=== PATIENT | female | born 2000 | race Caucasian/White ===

== ENCOUNTER 2018-08-14 09:46 | Day surgery (SDC) | payer OTHER ==
[2018-08-14] VITALS (14 sets, daily range): BP systolic 94–132; BP diastolic 46–78; PULSE 82–110; RESP 10–20; Ht 172.7 cm; Wt 60.9 kg
[~2018-08-14] VITALS: Ht 172.7 cm; Wt 60.9 kg
[2018-08-14] MEDS ORDERED: SPIR50TA PO (10:05)
[2018-08-14] MEDS ORDERED: CEFAZOLIN 1 GM INJ ONE ×2 (11:43→15:02)
[2018-08-14] MEDS ORDERED: ROPIVACAINE 0.5 % 30 ML VIAL ONE ×2 (11:43→13:58)
[2018-08-14] MEDS ORDERED: HYDROmorphONE 2 MG/ML SYG ONE (11:43)
[2018-08-14] MEDS ORDERED: PROPOFOL 20 ML ONE (11:43)
[2018-08-14] MEDS ORDERED: MIDAZOLAM 1 MG/ML 2 ML INJ ONE (11:43)
[2018-08-14] MEDS ORDERED: ROCURONIUM 50 MG INJ ONE (11:45)
--- NOTE | 2018-08-14 12:31 | PREAC ---
Date/Time of Note Date/Time of Note DATE: 08/14/18 TIME: 12:30 Anesthesia Eval and Record Evaluation Time Pre-Procedure Interview DATE: 08/14/18 TIME: 12:30 Age 18 Sex female NPO: 8 hrs Preoperative diagnosis Right Achilles Tendon Rupture Planned procedure Right Achilles Tendon Repair Past Medical History Past Medical History: None Surgery & Anesthesia Issues No known issue Meds Anticoagulation: No Beta Kg within 24 hr: No Reason Beta Kg not given: Pt. not on B-Kg Reported Medications Spironolactone* (Aldactone*) 50 Mg Tablet, 50 MG PO DAILY, #30 TAB 08/14/18 Meds reviewed: Yes Allergies Coded Allergies: No Known Allergy (Unverified , 08/14/18) Allergies Reviewed: Yes Labs/Studies Labs Reviewed: Reviewed by anesthesiologist test: Negative Studies: ECG (n/a), CXR (n/a) Pre-procedure Exam Last vitals Vital Signs Date Temp Pulse Resp B/P (MAP) Pulse Ox O2 O2 Flow FiO2 Time Delivery Rate 08/14/18 98.6 110 16 131/78 97 Room Air 10:21 (95) Airway: Adequate mouth opening, Adequate thyromental dist Mallampati: Mallampati II Teeth: Normal Lung: Normal Heart: Normal ASA Physical Status ASA physical status: 1 Emergency: None Planned Anesthetic General/MAC: ETT Nerve block: Sciatic (right) Planned Pain Management Single shot nerve block, Parenteral pain med Pre-operative Attestations Prior to commencing anesthesia and surgery, the patient was re-evaluated, there was verification of: *The patient's identity *The results of appropriate recent lab work and preoperative vital signs *The above evaluation not changing prior to induction *Anesthetic plan, risk benefits, alternative and complications discussed with patient/family; questions answered; patient/family understands, accepts and wishes to proceed. NAVIN HARTLEY MD Aug 14, 2018 12:31
[2018-08-14] MEDS ORDERED: HYDROmorphONE 1 MG/5 ML IV SYRINGE IV PRN ×3 (13:00)
[2018-08-14] MEDS ORDERED: EPHEDrine SULFATE 50 MG/5 ML SYG IV PRN (13:00)
[2018-08-14] MEDS ORDERED: ONDANSETRON 4 MG INJ IV PRN ×2 (13:00→16:00)
[2018-08-14] MEDS ORDERED: MEPERIDINE 25 MG INJ IV PRN (13:00)
[2018-08-14] MEDS ORDERED: METOCLOPRAMIDE 10 MG INJ IV PRN (13:00)
[2018-08-14] MEDS ORDERED: OXYCODONE/ACETAMINOPHEN (5/325) TAB PO PRN ×3 (13:00→16:00)
[2018-08-14] MEDS ORDERED: FENTAnyl 50 MCG/ML VIAL IV PRN ×3 (13:00)
[2018-08-14] MEDS ORDERED: DIPHENHYDRAMINE 50 MG INJ IV PRN (13:00)
[2018-08-14] MEDS ORDERED: DEXAMETHASONE 4 MG/ML 5 ML INJ ONE (13:58)
[2018-08-14] MEDS ORDERED: METOCLOPRAMIDE 10 MG INJ ONE (13:58)
[2018-08-14] MEDS ORDERED: KETOROLAC 30 MG INJ ONE (13:58)
[2018-08-14] MEDS ORDERED: ONDANSETRON 4 MG INJ ONE (13:58)
[2018-08-14] MEDS ORDERED: CA CHLORIDE (GM) 10% 10 ML INJ ONE (13:59)
[2018-08-14] MEDS ORDERED: THROMBIN 5000 UNIT VIAL ONE (13:59)
[2018-08-14] MEDS ORDERED: POLYMYXIN/BACITRACIN 1L IRRIG ONE (13:59)
[2018-08-14] MEDS ORDERED: FENTAnyl 50 MCG/ML VIAL ONE (15:24)
[2018-08-14] MEDS ORDERED: SUGAMMADEX SODIUM 200 MG/2 ML VIAL IV ONE (15:26)
[2018-08-14] MEDS ORDERED: SOD CHLORIDE 0.9% 1,000 ML IV SCH (15:52)
--- NOTE | 2018-08-14 15:52 | OPPN ---
Date/Time of Note Date/Time of Note DATE: 08/14/18 TIME: 15:51 Operative Report Preoperative Diagnosis Right Achilles tendon tear Postoperative Diagnosis same Operation/Procedure Performed Right achilles tendon repair Surgeon see signature line licensed physical therapy assistant DO Alejandra Anesthesia: general, MAC Estimated blood loss: minimal Transfusion Required none Specimen none Grafts/Implants none Complications none KIANNA SEVILLA MD Aug 14, 2018 15:52
--- NOTE | 2018-08-14 15:56 | PAC ---
Date/Time of Note Date/Time of Note DATE: 08/14/18 TIME: 15:55 Post-Anesthesia Notes Post-Anesthesia Note Last documented vital signs Vital Signs Date Temp Pulse Resp B/P (MAP) Pulse Ox O2 O2 Flow FiO2 Time Delivery Rate 08/14/18 99.0 110 16 131/78 97 Room Air 16:01 (95) Activity: WNL Respiratory function: WNL Cardiovascular function: WNL Mental status: Baseline Pain reasonably controlled: Yes Hydration appropriate: Yes Nausea/Vomiting absent: Yes NAVIN HARTLEY MD Aug 14, 2018 15:55
[2018-08-14] MEDS ORDERED: morphine 2 MG INJ IV PRN (16:00)
--- NOTE | 2018-08-14 17:25 | OPR ---
DATE OF OPERATION: 08/14/2018 PREOPERATIVE DIAGNOSIS: Acute tear of the right Achilles tendon. POSTOPERATIVE DIAGNOSES: 1. Acute tear of the right Achilles tendon. 2. Bilateral tight gastroc soleus complexes. PROCEDURES: 1. Repair of the tear of the right Achilles tendon. 2. Release of deep posterior fascia compartment. 3. Injection of PRP on the torn Achilles. 4. Short-leg cast. SURGEON: Kianna Singh MD ACOUSTICAL INSTALLER: Mario Roberts DO ANESTHESIA: General with popliteal block. TOURNIQUET TIME: 73 minutes. DESCRIPTION OF PROCEDURE: The patient was taken to the operating room and placed in supine position. Satisfactory popliteal block was given. Satisfactory general anesthesia was administered. A 2 gra ms were Ancef intravenously. The patient was rolled very carefully in the prone position, secured wi th extra padding pillows. All areas were carefully positioned including the arms. We examined both Achilles and 90 degrees of bend at the knee. She had very tight gastroc soleus on injured side with her foot in at least 25 to 30 degrees of plantar flexion, slight inversion. I felt we would have to replicate this on the other side. Both lower extremities were prepped and draped in the usual manner. The left foot was draped out of the field. The right foot was approached. An incision was made medial to the Achilles tendon. Diss ection was carried down through the subcutaneous tissue. Paratenon was torn in the mid portion. We preserved as much of the paratenon as we could. A 3-0 undyed Vicryl was placed for retraction and antelmo th sides of the wound. Minimal use of retraction was done throughout the procedure. Paratenon was o pened proximally, opened distally. The Achilles was completely ruptured and there was at least a 2 c m gap where retracted proximally. The entire wound was irrigated with antibiotic solution. All the hematoma and debris was removed. Using a special clamp, we were able to go up and find the retracted gastroc soleus with the Achilles and then freed up with a [place] circumferentially until we could mob ilize more inferiorly easily. A #2 FiberWire was then placed through the proximal portion of the Ach illes with a [place] stitch. Good bites of tissue were taken. We had good tendon proximally when we were done, pull down, then freed up the Achilles distally. A #2 FiberWire was placed through the Ach illes distally with a modified [place] stitch as well. We then put both knees at 90 degrees and we pu lled the torn Achilles together and compared it to the non-injured side. Both feet were about 25 to 30 degrees of plantar flexion and mildly inverted, appeared to replicate the tension on the Achilles exactly. With the foot plantarflexed, each suture was tied and both were tied together laterally. A 3-0 PDS was used to suture the edges of the tendon together more securely. There was no plantaris. It should be noted that prior to repairing the Achilles tendon and tying our knots, we did release t he deep posterior compartment to facilitate closure of paratenon. The wounds were then irrigated rep eatedly with 2 liters of antibiotic solution. The paratenon was closed with a running 3-0 undyed Jesús ryl. The center portion did not have good enough quality tissue to close. We could get a fairly goo d closure of the proximal third and the distal third. The tourniquet was released. Bleeders were co agulated. Wounds irrigated with antibiotic solution again. The subcutaneous tissue was closed with 3-0 undyed Vicryl and skin with 4-0 black nylon interrupted. Saphenous nerve block was done with 0.5 % ropivacaine. The PRP with calcium chloride was then mixed and injected in the subcutaneous space o n top of the Achilles tendon to facilitate healing. A short-leg cast was then placed in the foot and she was placed more plantar flexed than usual because the replicator is other side. The cast was sp lit in the recovery room. At the end of procedure, sponge and needle count was correct. The patient tolerated the procedure well. MANAGER ATHLETICS ORTHOPEDIC SURGEON: During the procedure, an senior executive assistant orthopedic surgeon was used at my [facility]. The senior executive assistant helped with retracting the Achilles, with helping suture the Achilles and tied the knot while I tied one side. He had to tie other, so we can maintain the exact tension. Without a skilled orthopedic surgeon senior executive assistant, this could not be done and thus should be compensated approp riately. Dictated By: KIANNA STALLINGS/CARMEN Conf#: [id number] DID#: [id number]
== END 2018-08-14 17:48 | disposition home or self-care (01) ==
LOC: SDS 09:46
PROVIDERS: ATTEND Orthopaedic Surgery
DX: S86.011D Strain of right Achilles tendon, subsequent encounter (principal); X58.XXXD Exposure to other specified factors, subsequent encounter
CPT/HCPCS: 27650; 84703; J0690; J1100; J1170; J1885; J2250; J2405; J2765; J2795; J3010